=== PATIENT | female | born 1975 | race African-American/Black ===

== ENCOUNTER 2023-06-04 09:47 | Emergency (ER) | payer MEDICAID ==
[~2023-06-04] VITALS: Ht 142.2 cm; Wt 75.0 kg
[2023-06-04 10:47] VITALS: TEMP 98.4
[2023-06-04] MEDS ORDERED: KETOROLAC TROMETHAMINE 60 MG/2 ML VIAL IM ONE (11:45)
[2023-06-04 14:05] VITALS: BP 116/71; PULSE 78; RESP 18
[2023-06-04] MEDS ORDERED: ACET-66 PO (14:52)
[2023-06-04] MEDS ORDERED: IBUP-2280 PO (14:52)
== END 2023-06-04 15:42 | disposition home or self-care (01) ==
LOC: EMS 10:01
DX: M25.512 Pain in left shoulder (principal); M25.562 Pain in left knee; Z98.890 Other specified postprocedural states; W18.30XA Fall on same level, unspecified, initial encounter; Y93.89 Activity, other specified; Y92.89 Other specified places as the place of occurrence of the external cause; Y99.8 Other external cause status
CPT/HCPCS: 99284; 29505; 73030; 73503; 73562; 96372; J1885